=== PATIENT | male | born 1955 | race Caucasian/White ===

== ENCOUNTER 2017-09-13 10:26 | Emergency (ER) | payer OTHER ==
[2017-09-13] MEDS ORDERED: Aspirin Low Dose CHEW TAB* 81 MG PO ONE (10:41)
[2017-09-13 10:42] VITALS: BP 147/101
--- NOTE | 2017-09-13 10:57 | UC ---
Cardiac HPI - HPI Summary HPI Summary: 3 days of right upper chest pain and 2 days of feeling "wonky" patient further goes on to explain a lightheaded feeling---Patient safely drove to urgent care today--has no SOB,sweating, Syncope, Nausea or Vomiting - History of Current Complaint Chief Complaint: UCChestPain Stated Complaint: CHEST PAIN DIZZY Time Seen by Provider: 09/13/17 10:28 Hx Obtained From: Patient Onset/Duration: Sudden Onset, Lasting Days - 3, Still Present, Worse Since - past 2 days Timing: Constant Initial Severity: Moderate Current Severity: Moderate Chest Pain Location: Discrete at:, Right Anterior Character: Tightness Aggravating Factor(s): Nothing Alleviating Factor(s): Nothing Associated Signs & Symptoms: Positive: Dizziness - Feeling of light headedness - Allergy/Home Medications Allergies/Adverse Reactions: Allergies Allergy/AdvReac Type Severity Reaction Status Date / Time Cephalexin [From Keflex] Allergy Hives Verified 09/13/17 10:42 Penicillins Allergy Hives Verified 09/13/17 10:42 Home Medications: Home Medications Levothyroxine TAB* [Synthroid 125 MCG TAB*] 1 tab PO DAILY 09/13/17 [History Confirmed 09/13/17] PMH/Surg Hx/FS Hx/Imm Hx Previously Healthy: No Endocrine History: Thyroid Disease - Surgical History Surgical History: Yes Surgery Procedure, Year, and Place[place] [facility] [place] Family History Known Family History: Positive: Cardiac Disease - brother with [place] age 61 - Social History Occupation: Retired Lives: With Family Alcohol Use: Occasionally Substance Use Type: None Smoking Status (MU): Never Smoked Tobacco Household Exposure Type: Cigarettes - Immunization History Most Recent Influenza Vaccination: NOT UTD Review of Systems Constitutional: Negative Skin: Negative Eyes: Negative ENT: Negative Respiratory: Negative Cardiovascular: Chest Pain Gastrointestinal: Negative Genitourinary: Negative Motor: Negative Neurovascular: Negative Musculoskeletal: Negative Neurological: Negative Psychological: Negative Is Patient Immunocompromised?: No All Other Systems Reviewed And Are Negative: Yes Physical Exam Triage Information Reviewed: Yes Appearance: Well-Appearing, No Pain Distress, Well-Nourished Vital Signs: Initial Vital Signs Temp 98.7 F 09/13/17 10:36 Pulse 53 09/13/17 10:36 Resp 16 09/13/17 10:36 BP 147/101 09/13/17 10:36 Pulse Ox 100 09/13/17 10:36 Vital Signs Reviewed: Yes Eye Exam: Normal Eyes: Positive: Conjunctiva Clear ENT Exam: Normal ENT: Positive: Normal ENT inspection, Hearing grossly normal, Pharynx normal. Negative: Nasal congestion, Nasal drainage, TMs normal, TM bulging, Tonsillar swelling, Tonsillar exudate, Trismus, Muffled voice, Hoarse voice Dental Exam: Normal Neck exam: Normal Neck: Positive: Supple, Nontender, No Lymphadenopathy Respiratory Exam: Normal Respiratory: Positive: Chest non-tender, Lungs clear, Normal breath sounds, No respiratory distress, No accessory muscle use Cardiovascular Exam: Normal Cardiovascular: Positive: RRR, No Murmur, Pulses Normal, Brisk Capillary Refill Musculoskeletal Exam: Normal Musculoskeletal: Positive: Strength Intact, ROM Intact, No Edema Neurological Exam: Normal Neurological: Positive: Alert, Muscle Tone Normal Psychological Exam: Normal Skin Exam: Normal Diagnostics - EKG Cardiac Rate: NL Cardiac Rhythm: Sinus: Normal - V1-V4 minimal st elevation Ectopy: None ST Segment: Non-Specific - Assessment/Plan Course Of Treatment: [place] day [place] [facility] [place] - Clinical Impression Provider Diagnoses: Right anterior Chest pain - Physician Notifications Discussed Patient Care With: Esther Campos Time Discussed With Above Provider: 10:45 Instructed by Provider To: Transfer Discharge - Discharge Plan Condition: Guarded Disposition: OTHER Discharge Dis[place] Comment[place] [facility] [place] A[place] Patient Education Materials: Chest Pain (ED) Referrals: Figueroa Méndez MD [Medical Doctor] - Additional Instructions: You are being discharged AMA from the urgent care to go directly to the hospital emergency department at [facility] for comprehensive evaluation of your chest discomfort
== END 2017-09-13 10:52 | disposition left against medical advice (07) ==
LOC: UCEAST 10:26
DX: R07.9 Chest pain, unspecified (principal); Z88.3 Allergy status to other anti-infective agents; Z88.0 Allergy status to penicillin
CPT/HCPCS: 93005; 99212; A9270-GY; G0463

== ENCOUNTER 2017-09-13 11:09 | Emergency (ER) | payer OTHER ==
[2017-09-13 12:28] LABS: ABS Basophils 0 10^3/ul (0-0.2); ABS Eosinophils 0.1 10^3/ul (0-0.6); ABS Lymphocytes 1.3 10^3/ul (1.0-4.8); ABS Monocytes 1.1 10^3/ul (0-0.8); ABS Neutrophils 3.6 10^3/ul (1.5-7.7); ABS Nucleated RBC 0 10^3/ul; Eosinophil % 1.5 % (0-6); Hematocrit 46 % (42-52); Hemoglobin 15.8 g/dl (14.0-18.0); Lymphocyte % 21.6 % (25-47); Mean Corpuscular HGB Conc 34 g/dl (31-36); Mean Corpuscular Hemoglobin 32 pg (27-31); Mean Corpuscular Volume 94 fL (80-94); Mean Platelet Volume 7 um3 (7.4-10.4); Nucleated Red Blood Cells % 0; Platelet Count 260 10^3/ul (150-450); Red Cell Distribution Width 14 % (10.5-15); White Blood Count 6.2 10^3/ul (3.5-10.8)
[2017-09-13 12:42] LABS: EGFR Non-African American 76.3 (>60)
--- NOTE | 2017-09-13 12:59 | RAD ---
INDICATION: Chest pain COMPARISON: None TECHNIQUE: An AP portable view obtained at 1235 hours is submitted. FINDINGS: Bones/Soft Tissues: There are no acute bony findings. Cardiomediastinal: The cardiomediastinal silhouette is normal. Lungs: There are no infiltrates. Pleura: There are no pleural effusions. Other: None IMPRESSION: NO ACTIVE DISEASE.
[2017-09-13 13:19] LABS: INR 1.02 (0.77-1.02)
[2017-09-13] MEDS ORDERED: Iohexol 350* (CONTRAST) 500 ML MDV IV ONE (15:36)
--- NOTE | 2017-09-13 17:24 | RAD ---
INDICATION: Right-sided chest pain COMPARISON: None TECHNIQUE: Axial source images were acquired following the administration of 77 mL of Omnipaque [address] angiographic technique. Coronal and sagittal reconstructed images were constructed and reviewed. FINDINGS: There are partially occlusive emboli seen at the the segmental branches of the right lobar artery in the dependent segment of the right lower lobe (image 178) and the segmental branches of the right upper lobar pulmonary artery (axial image 102 and 98 for example). There are partially occlusive thrombi in the dependent segmental branches of the left lower lobe pulmonary artery (axial image 154). The lobar branches and right mainstem pulmonary arteries are patent. There are no focal infiltrates or effusions. There are no pulmonary parenchymal masses. The heart is normal in size. There is no evidence of pericardial effusion. There is no evidence of aortic aneurysm or dissection. Enlarged mediastinal lymph nodes include a right of midline paratracheal lymph node measuring 1.3 cm in short axis diameter (axial image 61). Additional mediastinal lymph nodes are seen but none are pathologically enlarged. The visualized osseous structures appear normal. There is a small hiatal hernia. IMPRESSION: 1. Positive for segmental pulmonary artery embolism involving at least the right upper, right lower and left lower lobes. 2. Mediastinal lymphadenopathy of unknown chronicity and indeterminate clinical significance.
[2017-09-13 18:13] VITALS: BP 123/67
--- NOTE | 2017-09-13 20:01 | ED ---
Pal Fitzgerald Angela, scribed for Esther Campos MD on 09/13/17 at 1211 . HPI Chest Pain - HPI Summary HPI Summary: This pt is a 62 y/o male presenting to [facility] [place] referred by [facility] c/o right sided chest pain x3 days. Pt reports he woke up feeling "wonky" 2 days ago. Pt notes he woke up feeling "like he is coming down with something." He describes his pain is aggravated with deep breaths. Pt notes he has had this same pain a long time in the past (approx 40 years ago) and 3 days later was diagnosed with pneumonia. He states he didn't have any symptoms except the chest pain. Denies fever, cough, LE pain, edema, SOB. He states he "doesn't think it is anything coronary." Pt is a former smoker (quit 10-12 years ago). PMHx: overactive thyroid a few years ago and is now underactive. Pt takes thyroid medications. Surgeries: deviated septum. Allergies: Penicillin, Keflex (reaction is hives). FHx: brother [place] at 67 y/o, father with stent at 60 y/o. - History of Current Complaint Chief Complaint: EDChestWallPain Time Seen by Provider: 09/13/17 11:30 Hx Obtained From: Patient, Other: - Estrella Krishnan, at Urgent Care Onset/Duration: Started Days Ago, Atraumatic, Still Present Timing: Lasting Days Current Severity: Mild Pain Intensity: 2 Pain Scale Used: 0-10 Numeric Chest Pain Location: Right Anterior Chest Pain Radiates: No Character: Other: - "wonky" Aggravating Factor(s): Deep Breaths Alleviating Factor(s): Nothing Associated Signs and Symptoms: Positive: Chest Pain. Negative: Shortness of Breath, Fever, Cough, Calf Pain/Swelling, Edema - Allergy/Home Medications Allergies/Adverse Reactions: Allergies Allergy/AdvReac Type Severity Reaction Status Date / Time Cephalexin [From Keflex] Allergy Hives Verified 09/13/17 10:42 Penicillins Allergy Hives Verified 09/13/17 10:42 PMH/Surg Hx/FS Hx/Imm Hx Endocrine/Hematology History: Reports: Hx Thyroid Disease - Hypothyroid Cardiovascular History: Denies: Hx Coronary Artery Disease Respiratory History: Reports: Hx Pneumonia - Surgical History Surgery Procedure, Year, and Place: Sinus Surgey at [facility] [place] (deviated septum) Infectious Disease History: No Infectious Disease History: Denies: Traveled Outside the [place] in Last 30 Days - Family History Known Family History: Positive: Cardiac Disease - brother with [place] age 61 - Social History Alcohol Use: Occasionally Substance Use Type: Reports: None Smoking Status (MU): Never Smoked Tobacco Review of Systems Negative: Fever, Chills Positive: Chest Pain Negative: Shortness Of Breath, Cough Negative: Edema, Other - LE pain All Other Systems Reviewed And Are Negative: Yes Physical Exam - Summary Physical Exam Summary: Appearance: Well-appearing, no pain distress, Well-nourished Skin: Warm, color reflects adequate perfusion. Pt is diaphoretic. Head: Normal Head/Face inspection Eyes: Conjunctiva clear ENT: Normal ENT inspection Neck: Supple, no nodes, no JVD Respiratory: Lungs clear, Normal breath sounds, no respiratory distress Cardio: RRR, No murmur, pulses normal, brisk capillary refill Abdomen: soft, nontender Bowel sounds: present Musculoskeletal: Strength Intact/ ROM intact. No calf tenderness. No edema. Neuro: Alert, muscle tone normal, facial symmetry, speech normal, sensory/motor intact Psychological: Normal Triage Information Reviewed: Yes Vital Signs On Initial Exam: Initial Vitals Temp Pulse Resp BP Pulse Ox 99.2 F 67 18 138/93 97 09/13/17 11:24 09/13/17 11:24 09/13/17 11:24 09/13/17 11:24 09/13/17 11:24 Vital Signs Reviewed: Yes Diagnostics - Vital Signs Vital Signs Temp Pulse Resp BP Pulse Ox 09/13/17 11:24 99.2 F 67 18 138/93 97 - Laboratory Lab Results: Lab Results 09/13/17 09/13/17 09/13/17 Range/Units 12:18 12:18 12:18 WBC 6.2 (3.5-10.8) 10^3/ul RBC 4.90 (4.0-5.4) 10^6/ul Hgb 15.8 (14.0-18.0) g/dl Hct 46 (42-52) % MCV 94 (80-94) fL MCH 32 H (27-31) pg MCHC 34 (31-36) g/dl RDW 14 (10.5-15) % Plt Count 260 (150-450) 10^3/ul MPV 7 L (7.4-10.4) um3 Neut % (Auto) 58.5 (38-83) % Lymph % (Auto) 21.6 L (25-47) % Blackford % (Auto) 17.8 H (1-9) % Eos % (Auto) 1.5 (0-6) % Baso % (Auto) 0.6 (0-2) % Absolute Neuts (auto) 3.6 (1.5-7.7) 10^3/ul Absolute Lymphs (auto) 1.3 (1.0-4.8) 10^3/ul Absolute Monos (auto) 1.1 H (0-0.8) 10^3/ul Absolute Eos (auto) 0.1 (0-0.6) 10^3/ul Absolute Basos (auto) 0 (0-0.2) 10^3/ul Absolute Nucleated RBC 0 10^3/ul Nucleated RBC % 0 INR (Anticoag Therapy) (0.77-1.02) D-Dimer, Quantitative (Less Than 230) ng/mL Sodium 134 (133-145) mmol/L Potassium 4.2 (3.5-5.0) mmol/L Chloride 102 (101-111) mmol/L Carbon Dioxide 28 (22-32) mmol/L Anion Gap 4 (2-11) mmol/L BUN 14 (6-24) mg/dL Creatinine 0.99 (0.67-1.17) mg/dL Est GFR ( Amer) 98.2 (>60) Est GFR (Non-Af Amer) 76.3 (>60) BUN/Creatinine Ratio 14.1 (8-20) Glucose 96 (70-100) mg/dL Lactic Acid (0.5-2.0) mmol/L Calcium 9.5 (8.6-10.3) mg/dL Magnesium 2.2 (1.9-2.7) mg/dL Total Bilirubin 0.70 (0.2-1.0) mg/dL AST 15 (13-39) U/L ALT 12 (7-52) U/L Alkaline Phosphatase 48 (34-104) U/L Total Creatine Kinase 71 (10-223) U/L CK-MB (CK-2) 1.3 (0.6-6.3) ng/mL Troponin I 0.00 (<0.04) ng/mL B-Natriuretic Peptide 17 ( - 100) pg/mL Total Protein 6.9 (6.4-8.9) g/dL Albumin 3.8 (3.2-5.2) g/dL Globulin 3.1 (2-4) g/dL Albumin/Globulin Ratio 1.2 (1-3) TSH 0.45 (0.34-5.60) mcIU/mL Thyroxine (T4) 11.11 (6.09-12.23) mcg/mL 09/13/17 09/13/17 09/13/17 Range/Units 12:18 12:18 14:30 WBC (3.5-10.8) 10^3/ul RBC (4.0-5.4) 10^6/ul Hgb (14.0-18.0) g/dl Hct (42-52) % MCV (80-94) fL MCH (27-31) pg MCHC (31-36) g/dl RDW (10.5-15) % Plt Count (150-450) 10^3/ul MPV (7.4-10.4) um3 Neut % (Auto) (38-83) % Lymph % (Auto) (25-47) % Blackford % (Auto) (1-9) % Eos % (Auto) (0-6) % Baso % (Auto) (0-2) % Absolute Neuts (auto) (1.5-7.7) 10^3/ul Absolute Lymphs (auto) (1.0-4.8) 10^3/ul Absolute Monos (auto) (0-0.8) 10^3/ul Absolute Eos (auto) (0-0.6) 10^3/ul Absolute Basos (auto) (0-0.2) 10^3/ul Absolute Nucleated RBC 10^3/ul Nucleated RBC % INR (Anticoag Therapy) 1.02 (0.77-1.02) D-Dimer, Quantitative 540 H (Less Than 230) ng/mL Sodium (133-145) mmol/L Potassium (3.5-5.0) mmol/L Chloride (101-111) mmol/L Carbon Dioxide (22-32) mmol/L Anion Gap (2-11) mmol/L BUN (6-24) mg/dL Creatinine (0.67-1.17) mg/dL Est GFR ( Amer) (>60) Est GFR (Non-Af Amer) (>60) BUN/Creatinine Ratio (8-20) Glucose (70-100) mg/dL Lactic Acid 0.7 (0.5-2.0) mmol/L Calcium (8.6-10.3) mg/dL Magnesium (1.9-2.7) mg/dL Total Bilirubin (0.2-1.0) mg/dL AST (13-39) U/L ALT (7-52) U/L Alkaline Phosphatase (34-104) U/L Total Creatine Kinase (10-223) U/L CK-MB (CK-2) (0.6-6.3) ng/mL Troponin I 0.00 (<0.04) ng/mL B-Natriuretic Peptide ( - 100) pg/mL Total Protein (6.4-8.9) g/dL Albumin (3.2-5.2) g/dL Globulin (2-4) g/dL Albumin/Globulin Ratio (1-3) TSH (0.34-5.60) mcIU/mL Thyroxine (T4) (6.09-12.23) mcg/mL 09/13/17 Range/Units 17:30 WBC (3.5-10.8) 10^3/ul RBC (4.0-5.4) 10^6/ul Hgb (14.0-18.0) g/dl Hct (42-52) % MCV (80-94) fL MCH (27-31) pg MCHC (31-36) g/dl RDW (10.5-15) % Plt Count (150-450) 10^3/ul MPV (7.4-10.4) um3 Neut % (Auto) (38-83) % Lymph % (Auto) (25-47) % Blackford % (Auto) (1-9) % Eos % (Auto) (0-6) % Baso % (Auto) (0-2) % Absolute Neuts (auto) (1.5-7.7) 10^3/ul Absolute Lymphs (auto) (1.0-4.8) 10^3/ul Absolute Monos (auto) (0-0.8) 10^3/ul Absolute Eos (auto) (0-0.6) 10^3/ul Absolute Basos (auto) (0-0.2) 10^3/ul Absolute Nucleated RBC 10^3/ul Nucleated RBC % INR (Anticoag Therapy) (0.77-1.02) D-Dimer, Quantitative (Less Than 230) ng/mL Sodium (133-145) mmol/L Potassium (3.5-5.0) mmol/L Chloride (101-111) mmol/L Carbon Dioxide (22-32) mmol/L Anion Gap (2-11) mmol/L BUN (6-24) mg/dL Creatinine (0.67-1.17) mg/dL Est GFR ( Amer) (>60) Est GFR (Non-Af Amer) (>60) BUN/Creatinine Ratio (8-20) Glucose (70-100) mg/dL Lactic Acid (0.5-2.0) mmol/L Calcium (8.6-10.3) mg/dL Magnesium (1.9-2.7) mg/dL Total Bilirubin (0.2-1.0) mg/dL AST (13-39) U/L ALT (7-52) U/L Alkaline Phosphatase (34-104) U/L Total Creatine Kinase (10-223) U/L CK-MB (CK-2) (0.6-6.3) ng/mL Troponin I 0.00 (<0.04) ng/mL B-Natriuretic Peptide ( - 100) pg/mL Total Protein (6.4-8.9) g/dL Albumin (3.2-5.2) g/dL Globulin (2-4) g/dL Albumin/Globulin Ratio (1-3) TSH (0.34-5.60) mcIU/mL Thyroxine (T4) (6.09-12.23) mcg/mL Result Diagrams: 09/13/17 12:18 09/13/17 12:18 Lab Statement: Any lab studies that have been ordered have been reviewed, and results considered in the medical decision making process. - Radiology Chest XR Xray Interpretation: No Acute Changes - IMPRESSION: No active disease. Dr. Campos has reviewed this radiology report. Radiology Interpretation Completed By: Radiologist - CT CTA Chest CT Interpretation: Positive (See Comments) - IMPRESSION: 1. Positive for segmental pulmonary artery embolism involving at least the right upper, right lower, and left lower lobes. 2. Mediastinal lymphadenopathy of unknown chronicity and indeterminate clinical significance. Dr. Campos has reviewed this radiology report. CT Interpretation Completed By: Radiologist - EKG 12:06 Cardiac Rate: Bradycardia EKG Rhythm: Sinus Bradycardia - at [address] Segment: Non-Specific Ectopy: None EKG Interpretation: Nml AVIVCT. Nml QTc. Negative axis (-8). Poor R wave progression V1, V2. EKG Comparison: No Significant Change - no significant change compared to . Re-Evaluation - Re-Evaluation First Eval Re-Evaluation Time: 15:26 Comment: Pt is resting comforatbly. Pt still has some right sided chest pain. I reviewed elevated D-dimer with the pt. I discussed with the pt that we will order CTA. Second Eval Re-Evaluation Time: 17:41 Comment: I reviewed CTA chest results with the pt. I discussed the treatement plan with the pt. O2 sat is 98, pulse is 65, blood pressure is 139/53. Chest Pain Course/Dx - Course Course Of Treatment: Pt medications reviewed this visit. Allergies noted. Chest XR is negative. EKG shows sinus bradycardia with Nml AVIVCT. Nml QTc. Negative axis (-8). Poor R wave progression V1, V2. Labs show two troponins are negative, elevated D-dimer at 540. CTA chest was ordered. CTA chest shows 1. Positive for segmental pulmonary artery embolism involving at least the right upper, right lower, and left lower lobes. 2. Mediastinal lymphadenopathy of unknown chronicity and indeterminate clinical significance. I discussed pt care with Dr. Hernández, hospitalist, who recommends to discharge pt on Xarelto. We used the sPESI score, which shows the pt is low risk for mortality. - Diagnoses Provider Diagnoses: Pulmonary embolism - Provider Notifications Discussed Care Of Patient With: Jesus Alberto Hernández Time Discussed With Above Provider: 17:28 Instructed by Provider To: Other - I discussed pt care with Dr. Hernández, hospitalist, who recommends to discharge pt on Xarelto. Discharge - Discharge Plan Condition: Stable Disposition: HOME Prescriptions: Rivaroxaban TAB(*) [Xarelto 15 mg(*)] 15 mg PO BID #42 tab Referrals: Figueroa Méndez MD [Primary Care Provider] - 3 Days Additional Instructions: We have given you instructions from [facility] about pulmonary embolus.Take Xarelto as directed to treat the pulmonary embolus. Have definite follow up with Dr. Méndez this week. RETURN TO THE EMERGENCY DEPARTMENT FOR ANY NEW OR WORSENING SYMPTOMS. The documentation as recorded by the Pal rojas Angela accurately reflects the service I personally performed and the decisions made by me, Esther Campos MD.
== END 2017-09-13 18:12 | disposition home or self-care (01) ==
LOC: ED 11:09
DX: I26.99 Other pulmonary embolism without acute cor pulmonale (principal); R07.9 Chest pain, unspecified; Z86.39 Personal history of other endocrine, nutritional and metabolic disease
CPT/HCPCS: 36415; 71045; 71275; 80053; 82550; 82553; 83605; 83735; 83880; 84436; 84443; 84484; 85025; 85379; 85610; 93005; 99283; Q9967

== ENCOUNTER 2019-10-14 09:21 | Emergency (ER) | payer MEDICARE, OTHER ==
[2019-10-14 09:41] VITALS: BP 126/77
[2019-10-14 09:56] LABS: Influenza B Molecular POSITIVE (Negative)
--- NOTE | 2019-10-14 10:10 | UC ---
FLU HPI - HPI Summary HPI Summary: started 5 days ago with coughing, fatigue, body aches. is starting to slowly feel better with ibuprofen did not have flu vacc this year - History of Current Complaint Chief Complaint: UCGeneralIllness Stated Complaint: COUGH FEVER BODYACHES Time Seen by Provider: 10/14/19 09:43 Hx Obtained From: Patient Onset/Duration: Gradual Onset Pain Intensity: 2 Associated Signs & Symptoms: Positive: Fever, Cough - Allergy/Home Medications Allergies/Adverse Reactions: Allergies Allergy/AdvReac Type Severity Reaction Status Date / Time cephalexin [From Keflex] Allergy Hives Verified 10/14/19 09:42 Penicillins Allergy Hives Verified 10/14/19 09:42 Home Medications: Home Medications Atorvastatin* [Lipitor 20 MG*] 1 tab PO DAILY 10/14/19 [History Confirmed ] PMH/Surg Hx/FS Hx/Imm Hx Previously Healthy: Yes Endocrine History: Hypothyroidism, Dyslipidemia - Surgical History Surgical History: Yes Surgery Procedure, Year, and Place[place] [facility] [place] - Family History Known Family History: Positive: Cardiac Disease - brother with [place] age 61 - Social History Occupation: Retired Lives: With Family Alcohol Use: Occasionally Substance Use Type: None Smoking Status (MU): Former Smoker Household Exposure Type: Cigarettes - Immunization History Most Recent Influenza Vaccination: NOT UTD Review of Systems All Other Systems Reviewed And Are Negative: Yes Constitutional: Positive: Fever, Fatigue Skin: Positive: Negative Respiratory: Positive: Cough. Negative: Shortness Of Breath Cardiovascular: Positive: Negative. Negative: Chest Pain Gastrointestinal: Positive: Negative Neurovascular: Positive: Negative Musculoskeletal: Positive: Other: - body aches Psychological: Positive: Negative Is Patient Immunocompromised?: No Physical Exam Triage Information Reviewed: Yes Appearance: Well-Appearing, No Pain Distress, Well-Nourished Vital Signs: Initial Vital Signs Temp 99.2 F 10/14/19 09:39 Pulse 76 10/14/19 09:39 Resp 15 10/14/19 09:39 BP 126/77 10/14/19 09:39 Pulse Ox 100 10/14/19 09:39 Vital Signs Reviewed: Yes Eyes: Positive: Conjunctiva Clear ENT: Positive: Pharynx normal, Nasal congestion Respiratory Exam: Normal Respiratory: Positive: Lungs clear, Other: - slightly prodcutive cough heard on exam Cardiovascular Exam: Normal Musculoskeletal Exam: Normal Musculoskeletal: Positive: ROM Intact Neurological Exam: Normal Neurological: Positive: Alert Psychological Exam: Normal Skin Exam: Normal Skin: Negative: Rashes Flu Course/Dx - Differential Dx/Diagnosis Differential Diagnosis/HQI/PQRI: Influenza, Upper Respiratory Infection Provider Diagnosis: Influenza Discharge ED - Sign-Out/Discharge Documenting (check all that apply): Patient Departure All imaging exams completed and their final reports reviewed: No Studies - Discharge Plan Condition: Good Disposition: HOME Patient Education Materials: Influenza (DC) Referrals: Figueroa Méndez MD [Primary Care Provider] - 3 Days (if symptoms no better ) Additional Instructions: Rest and drink plenty of fluids use Tylenol as directed for pain and fever - Billing Disposition and Condition Condition: GOOD Disposition: Home
== END 2019-10-14 10:16 | disposition home or self-care (01) ==
LOC: UCEAST 09:21
DX: J11.1 Influenza due to unidentified influenza virus with other respiratory manifestations (principal); E03.9 Hypothyroidism, unspecified; E78.5 Hyperlipidemia, unspecified; Z88.1 Allergy status to other antibiotic agents; Z88.0 Allergy status to penicillin; Z79.899 Other long term (current) drug therapy; Z87.891 Personal history of nicotine dependence
CPT/HCPCS: 99211; G0463